=== PATIENT | female | born 1975 | race Caucasian/White ===

== ENCOUNTER 2018-07-13 08:32 | Emergency (ER) | payer OTHER ==
[2018-07-13 08:41] VITALS: RESP 18; O2SAT 98
[2018-07-13] MEDS ORDERED: ACETAMINOPHEN 500 MG 500 MG TAB PO ONE (09:12)
[2018-07-13 09:26] VITALS: TEMP 97.2
[2018-07-13 09:26] LABS: APPEARANCE,URINE Clear; BILIRUBIN,URINE NEGATIVE (NEGATIVE); COLOR,URINE Yellow; GLUCOSE, URINE (UA) NEGATIVE (NEGATIVE); KETONES,URINE NEGATIVE (NEGATIVE); LEUKOCYTE ESTERASE ,URINE TRACE (NEGATIVE); NITRATE,URINE NEGATIVE (NEGATIVE); OCCULT BLOOD,URINE NEGATIVE (NEG-TRACE); UROBILINOGEN,URINE 0.2 (0.2-1.0 EU)
[2018-07-13 09:36] LABS: BACTERIA 1+ (< 1+); CRYSTALS 1+ (0-3 AVE/HPF); EPITHELIAL CELLS 0-2 (SQUAMOUS); RBC,URINE 0-2 (0-3AV/HPF); WBC,URINE 0-2 (0-5AV/HPF)
[2018-07-13] MEDS ORDERED: ACETAMINOPHEN 500 MG 500 MG TAB ONE (09:44)
[2018-07-13 09:48] LABS: BASOPHILS % (AUTO) 1 % (0-3); EOSINOPHILS % (AUTO) 1 % (0-9); HEMATOCRIT 43 % (35-47); LYMPHOCYTES % (AUTO) 23.2 % (10-50); MEAN CORPUSCULAR HEMOGLOBIN 28.9 pg (27.0-32.0); MEAN CORPUSCULAR HGB CONC 32.8 gm/dl (32.0-36.0); MEAN CORPUSCULAR VOLUME 88 fL (81-99); MONOCYTES % (AUTO) 5.8 % (0-12); NEUTROPHILS % (AUTO) 68.6 % (37-80)
[2018-07-13 10:00] LABS: ALBUMIN 3.9 gm/dl (3.4-5.0); BILIRUBIN,TOTAL 0.5 mg/dl (0.2-1.0); CALCIUM 8.5 mg/dl (8.5-10.1); CARBON DIOXIDE 28.4 mEq/L (21-32); CREATININE 0.83 mg/dl (0.60-1.00); TOTAL PROTEIN 7.2 gm/dl (6.4-8.2)
[2018-07-13 11:07] VITALS: BP 112/85; PULSE 55
== END 2018-07-13 10:17 | disposition home or self-care (01) | DRG 556 ==
LOC: ED 08:32
DX: M25.512 Pain in left shoulder (principal); M25.552 Pain in left hip; V43.52XA Car driver injured in collision with other type car in traffic accident, initial encounter
CPT/HCPCS: 36415; 71046; 72170; 80053; 81001; 85025; 87088; 99283